=== PATIENT | female | born 1975 | race Two or more races ===

== ENCOUNTER 2020-09-22 21:06 | Emergency (ER) | payer SELFPAY ==
[~2020-09-22] VITALS: Ht 162.6 cm; Wt 90.7 kg
[2020-09-22 21:17] VITALS: BP 152/76
[2020-09-22] MEDS ORDERED: cefTRIAXone SOD 1,000 MG VL IM ONE (22:45)
[2020-09-22] MEDS ORDERED: TETANUS-DIPTH-ACEL PERTUSSIS 0.5ML SYR Tdap IM ONE (22:45)
[2020-09-22] MEDS ORDERED: KETOROLAC TROMETH 60MG/2ML VIAL IM ONE (22:45)
== END 2020-09-22 23:13 | disposition home or self-care (01) ==
LOC: ER 21:14
DX: S41.152A Open bite of left upper arm, initial encounter (principal); Z32.02 Encounter for pregnancy test, result negative; W54.0XXA Bitten by dog, initial encounter; Y93.89 Activity, other specified; Y92.89 Other specified places as the place of occurrence of the external cause; Y99.8 Other external cause status
CPT/HCPCS: 81025; 90471; 90715; 96372; 99284; J0696; J1885